=== PATIENT | male | born 1970 | race Two or more races ===

== ENCOUNTER 2024-10-07 14:35 | Inpatient (IN) | payer BC, SELFPAY ==
[2024-10-07] VITALS (17 sets, daily range): BP systolic 99–186; BP diastolic 57–111; PULSE 64–136; RESP 13–96; TEMP 36.8–37.1; O2SAT 92–99; BMI 26.5
--- NOTE | 2024-10-07 14:43 | EKG_ITS ---
[facility] Test Date: 2024-10-07 Pat Name: SONAL LEWIS Department: Room: - Gender: Male Media Relations Associate: : 1970 Requested By: ED Temporary Provider Order Number: [id number] Reading MD: ED Temporary Provider Measurements Intervals [place] Rate: 121 P: 66 DE: 155 QRS: 60 QRSD: 74 T: 51 QT: 270 QTc: 384 Interpretive Statements SINUS TACHYCARDIA NONSPECIFIC ST & T-WAVE ABNORMALITY ABNORMAL RHYTHM ECG No previous ECG available for comparison /store/S0/[id number]
--- NOTE | 2024-10-07 14:48 | XR_ITS ---
Examination: PA lateral chest 2 views Technique: Upright PA lateral chest 2 views Date and time: October 07, 2024 1501 hrs. Indications: Chest pain today. Findings: Minimal prominence left ventricle Lungs are clear. Mild osteopenia. Impression: No active disease
--- NOTE | 2024-10-07 14:49 | PD.EDRME ---
Rapid Medical Screening Exam E Arrival date/time: 10/07/24 14:35 54-year-old male with a history of hypertension presents to the emergency room with a chief complaint of 5 out of 10 sternal chest pain that radiates to his left arm and is causing him numbness and tingling x 1 day. I have greeted and performed a focused initial assessment of this patient. A comprehensive ED assessment and evaluation of the patient, analysis of all test results, and completion of the medical decision making process will be conducted by additional ED providers. Chief Complaint: General Adult/Misc Complain Vital signs reviewed by provider: Yes
[2024-10-07] MEDS: Aspirin 325 MG TABLET PO (15:48)
[2024-10-07] MEDS: ONDANSETRON INJ 2 MG/ML INJ 2 ML 4 MG IV (15:48)
[2024-10-07] MEDS: FAMOTIDINE INJ 10 MG/ML VIAL 2 ML 20 MG IVP (15:49)
[2024-10-07] MEDS: NITROGLYCERIN OINT 2% 1 INCH PACKET TOP (15:50)
[2024-10-07] MEDS: METOPROLOL TARTRATE INJ 1 MG/ML AMP 5 ML 5 MG IVP ×2 (16:01→17:39)
[2024-10-07 16:03] LABS: Lactate (Lactic Acid) 2.5 mMol/L (0.4-2.0)
[2024-10-07 16:04] LABS: Basophils % (Auto) 0 % (0-2.5); Eosinophils # (Auto) 0.1 Thou/mm3 (0.0-0.5); Eosinophils % (Auto) 1 % (0-10); Hematocrit 42.8 % (41.0-53.0); Hemoglobin 15.6 g/dL (13.5-16.0); Immature Granulocytes % (Auto) 1 % (0-0); Immature Granulocytes Auto 0.11 Thou/mm3 (0.00-0.00); Lymphocytes # (Auto) 1.7 Thou/mm3 (1.0-4.8); Lymphocytes % (Auto) 15 % (10-50); Mean Corpuscular HGB Conc 36.4 g/dl (31.0-37.0); Mean Corpuscular Hemoglobin 33.3 pg (25.0-35.0); Mean Corpuscular Volume 92 fL (80-100); Monocytes # (Auto) 0.7 Thou/mm3 (0.0-0.8); Monocytes % (Auto) 6 % (0-12); Neutrophils # (Auto) 8.4 Thou/mm3 (1.8-7.7); Neutrophils % (Auto) 77 % (37-80); Nucleated Red Blood Cell % 0 /100 WBC (0); Platelet Count 257 Thou/mm3 (140-440); RDW Standard Deviation 40.5 fL (35.1-43.9); Red Blood Count 4.68 Miln/mm3 (4.50-5.90); White Blood Count 10.9 Thou/mm3 (3.8-10.6)
[2024-10-07 16:05] LABS: Collection Type, Urine Clean Catch; Squamous Epithelial Cell,Urine 0 /hpf (0-5)
[2024-10-07 16:09] LABS: Bilirubin,Urine Negative (Negative); Blood,Urine Negative (Negative); Clarity,Urine Clear (Clear/Hazy); Color,Urine Lt-Yellow (Lt Yel-Yel); Glucose, Urine Negative (Negative); Ketones,Urine Negative (Negative); Leukocyte Esterase,Urine Negative (Negative); Nitrite,Urine Negative (Negative); Protein,Urine Negative (Neg - Trace); RBC,Urine 3 /hpf (0-3); Urobilinogen,Urine Negative mg/dL (0.0-1.0); WBC,Urine 1 /hpf (0-5)
--- NOTE | 2024-10-07 16:11 | PD.EDADULT ---
ED General RME/HPI General Chief complaint: General Adult/Misc Complain Stated complaint: HIGH BP 170/106; TOOK BP MEDS @ 2 HRS AGO; 160/110 Time Seen by Provider: 10/07/24 15:16 Arrival date/time: 10/07/24 14:35 RME / HPI RME / HPI narrative: This patient is a 54-year-old with past medical history of hypertension, gastritis presenting to the ED on 10/07/2024 with chief complaint of substernal chest pain radiating to the left arm started today. Patient reported that he had his breakfast with 2 cups of coffee after which his blood pressure went up and he felt racing of heart. He checked his blood pressure and was 190/100 after which he took lisinopril which helped the chest pain as well. He rated his chest pain as 5/10 rating to the left arm lasting for 40 minutes and is resolved during assessment. He describes his pain as pressure-like without shortness of breath. He endorsed abdominal discomfort mainly in the epigastric region associate with nausea and has some itchiness with redness on the chest. He follows his PCP as outpatient and was informed that he needs cardiac workup outpatient however patient did not get worked up before. Patient has similar episode of chest pain 2 years ago as well as 2 months ago. Denied any dysuria or lower extremity swelling. He endorsed some cough without phlegm related to allergies. Past medical history: As above PSH: Cholecystectomy SH: smokes 1 to 2 cigarettes once every week, drinks 1 beer twice a day every week. Last drink was a week ago. Denies recreational drug use Allergies: NKDA Home medications: Lisinopril 40 mg once daily Vitals showed blood pressure 183/97, tachycardia with pulse 124, respiratory rate 18 and afebrile. He was saturating well on room air. Labs were significant for leukocytosis white count 10.9, hemoglobin 15.6. Lactic acidosis lactic acid 2.5.EKG showed sinus tachycardia with QTc [address] depressions in lead to 3 aVF, anterior leads V2 to V3, V4, V5, V6. Heart score came 5 points predicting moderate risk of MACE 12-16% Differential diagnoses include NSTEMI type I, gastritis/GERD, Hypertensive urgency, lactic acidosis, hypokalemia Patient was given bolus of aspirin 325 mg x 1, Zofran 4 mg x 1, nitroglycerin patch x 1, Pepcid 20 mg IV x 1 and metoprolol 5 mg IV x 1. Waiting for CMP, Trop I and urinalysis. 17:30 patient reported improvement in his symptoms after medications. Vitals revealed slight improvement in tachycardia and blood pressure remained elevated. CMP was significant for hyponatremia sodium 134, hypokalemia potassium 2.9. Kidney functions showed BUN 16 and creatinine 1.0. Blood glucose 126. Hypocalcemia 8.3 and hypomagnesemia 1.7. Liver enzymes unremarkable. Initial troponin I came negative. We repeated troponin I at 6:00 . Urinalysis was clean. U tox was negative. Chest x-ray showed no active disease. 17:40 We ordered additional metoprolol 5 mg x 1, 40 mEq KCl p.o., 20 mEq KCl IV x 1, magnesium 2 g IV x 1 and calcium carbonate 600 mg x 1. Business Systems Developer, Dr. Jackson was consulted. He stated that if patient 2nd troponin I goes up we can start heparin drip for ACS protocol and he will assess the patient later. 17:55 Patient was complaining of anxiety therefore hydroxyzine was given 25 mg x 1. Pending second troponin I. Discussed case with hospitalist team regarding admission. Discussed patient's ED course, exam findings, labs and radiology results. Hospitalist team agreed to accept the patient for admission. MD complaint: Substernal chest pain radiating to the left arm Onset (ago): day(s) (1) Location: chest and upper extremity (Left arm) Radiation: extremity Severity: severe Severity scale (1-10): 5 Quality: crushing and constant Consistency: now resolved Relieving factors: medication (lisinopril 40 mg) Associated symptoms: chest pain, nausea/vomiting and other (Racing of heart) Treatments prior to arrival: other (Lisinopril 40 mg) Related Data Allergies Allergy/AdvReac Type Severity Reaction Status Date / Time No Known Allergies Allergy Verified 10/07/24 14:41 Review of Systems Review of Systems Systems Reviewed: All systems reviewed, normal except as documented Past Medical History Past Medical History CARDIAC: Positive Hypertension GASTROINTESTINAL: Positive Gastroesophageal Reflux Disease Surgical History SURGICAL: Positive Hx Cholecystectomy ED Exam Narrative Physical exam: GENERAL APPEARANCE: AxOx4, generally well-appearing male in no distress HEENT: NC, AT. dry mucus membrane. EOMI, clear conjunctiva, oropharynx clear. NECK: Supple without lymphadenopathy. No stiffness or restricted ROM. HEART: sinus tacy with regular rhythm, normal S1/S2, no m/r/g, Hypertensive LUNGS: CTAB, moving air well. No crackles or wheezes are heard. ABDOMEN: Soft, epigastric tenderness, nondistended with good bowel sounds heard. BACK: No CVAT, no obvious deformity. EXTREMITIES: Without cyanosis, clubbing or edema. NEUROLOGICAL: Grossly nonfocal. Alert and oriented, moving all 4 extremities. CN not formally tested but appear grossly intact. Observed to ambulate with normal gait. Skin: Warm and dry without any rash. Psych: appropriate mood and affect Course Course Course Narrative: This patient is a 54-year-old with past medical history of hypertension gastritis presenting to the ED on 10/07/2024 with chief complaint of substernal chest pain radiating to the left arm started today. Patient reported that he had his breakfast with 2 cups of coffee after which his blood pressure went up and he felt racing of heart. He checked his blood pressure and was 190/100 after which he took lisinopril that helped the chest pain as well. He rated his chest pain as 5/10 rating to the left arm lasting for 40 minutes and is resolved during assessment. He describes his pain as pressure-like without shortness of breath. He endorsed abdominal discomfort mainly in the epigastric region associated with nausea and has some itchiness with redness on the chest. He follows his PCP as outpatient and was informed that he needs cardiac workup outpatient however patient did not get worked up before. This has been ongoing and recurent, Patient has similar episode of chest pain 2 years ago as well as 2 months ago. Denied any dysuria or lower extremity swelling. He endorsed some cough without phlegm related to allergies. Vitals showed blood pressure 183/97, tachycardia with pulse 124, respiratory rate 18 and afebrile. He was saturating well on room air. Labs were significant for leukocytosis white count 10.9, hemoglobin 15.6. Lactic acidosis lactic acid 2.5.EKG showed sinus tachycardia with QTc [address] depressions in lead to 3 aVF, anterior leads V2 to V3, V4, V5, V6. No previous EKGs to compare. Heart score came 5 points predicting moderate risk of MACE 12-16% Differential diagnoses includeNSTEMI type I, GERD, uncontrolled hypertension, anxiety, pneumonia, lactic acidosis Patient was given bolus of aspirin 325 mg x 1, Zofran 4 mg x 1, nitroglycerin patch x 1, Pepcid 20 mg IV x 1 and metoprolol 5 mg IV x 1. Waiting for CMP, Trop I and urinalysis. 17:20 patient reported improvement in his symptoms after medications. Vitals revealed slight improvement in tachycardia and blood pressure remained elevated. CMP was significant for hyponatremia sodium 134, hypokalemia potassium 2.9. Kidney functions showed BUN 16 and creatinine 1.0. Blood glucose 126. Hypocalcemia 8.3 and hypomagnesemia 1.7. Liver enzymes unremarkable. Initial troponin I came negative. We repeated troponin I at 6:00 . Urinalysis was clean. U tox was negative. Chest x-ray showed no active disease. We ordered additional metoprolol 5 mg x 1, 40 mEq KCl p.o., 20 mEq KCl IV x 1, magnesium 2 g IV x 1 and calcium carbonate 600 mg x 1. Business Systems Developer, Dr. Jackson was consulted. He stated that if patient 2nd troponin I goes up we can start heparin drip for ACS protocol and he will assess the patient later. 17:55 Patient was complaining of anxiety therefore hydroxyzine was given 25 mg x 1. Pending second troponin I. Discussed case with hospitalist team regarding admission. Discussed patient's ED course, exam findings, labs and radiology results. Hospitalist team agreed to accept the patient for admission. Quality Measures none Orders Category Date Time Status EKG (ED ONLY) *Do not use* NOW Care 10/07/24 14:43 Completed EKG (ED ONLY) *Do not use* NOW Care 10/07/24 17:26 Active Insert IV NOW Care 10/07/24 15:40 Active Consult to Cardiology Stat Cons 10/07/24 17:18 Ordered EKG (ED Only) Stat Exams 10/07/24 14:43 Draft EKG (ED Only) Stat Exams 10/07/24 17:26 Ordered XR chest 2V Stat Exams 10/07/24 14:48 Completed B-Type Natriuretic Peptide Stat Lab 10/07/24 15:46 Completed CBC Stat Lab 10/07/24 15:46 Completed Comprehensive Metabolic Panel Stat Lab 10/07/24 15:46 Completed Drug Screen,Urine Stat Lab 10/07/24 15:54 Completed Lactate (Lactic Acid) Stat Lab 10/07/24 15:46 Results Magnesium Stat Lab 10/07/24 15:46 Completed Troponin I Routine Lab 10/07/24 17:30 Received Troponin I Stat Lab 10/07/24 15:46 Completed Urinalysis Stat Lab 10/07/24 15:54 Completed Aspirin Med 10/07/24 15:24 Discontinued 325 mg PO X1 ONE Calcium Carbonate Med 10/07/24 17:02 Discontinued 600 mg PO X1 ONE Famotidine Inj [Pepcid Inj] Med 10/07/24 15:24 Discontinued 20 mg IVP X1 ONE Labetalol IV [Trandate IV] Med 10/07/24 15:45 Discontinued 5 mg IVP X1 ONE Magnesium Sulfate 2 GM Ivpb [Magnesium Sulfate Ivpb] Med 10/07/24 17:02 Active 2 gm in 50 ml IV X1 Metoprolol Tartrate Inj [Lopressor Inj] Med 10/07/24 15:52 Discontinued 5 mg IVP X1 ONE Metoprolol Tartrate Inj [Lopressor Inj] Med 10/07/24 17:11 Discontinued 5 mg IVP X1 ONE Nitroglycerin Oint 2% [Nitro-paste Oint 2%] Med 10/07/24 15:24 Discontinued 1 inch TOP X1 ONE Ondansetron Inj [Zofran Inj] Med 10/07/24 15:24 Discontinued 4 mg IV X1 ONE POTASSIUM CHL 10 mEq IVPB [Kcl Ivpb] Med 10/07/24 17:05 Active 10 meq in 100 ml IV Q1H Potassium Chloride [K-Dur] Med 10/07/24 17:01 Discontinued 20 meq PO X1 ONE Potassium Chloride [K-Dur] Med 10/07/24 17:01 Discontinued 40 meq PO X1 ONE Sodium Chloride 0.9% 500 ml [Ns] 500 ml Med 10/07/24 17:51 Ordered IV 100 mls/hr hydrOXYzine HCL [Atarax] Med 10/07/24 17:54 Once 25 mg PO X1 ONE Vital Signs Vital signs: Vital Signs Temperature 98.2 F 10/07/24 14:50 Pulse Rate 124 H 10/07/24 14:50 Respiratory Rate 18 10/07/24 14:50 Blood Pressure 183/97 H 10/07/24 14:50 Pulse Oximetry (%) 98 10/07/24 14:50 Oxygen Delivery Method Room Air 10/07/24 14:50 Discharge Plan Plan Patient Disposition: Admit Acute Care w/in Hospital Problem List Clinical Impression: Chest pain, Hypertensive urgency Patient/Caregiver Discharge Instructions Print Language: Georgian Stand Alone Forms: Kym Award Info., Patient Portal Info Letter MDM Narrative MDM hospital course (for use when minimal MDM required): This patient is a 54-year-old with past medical history of hypertension gastritis presenting to the ED on 10/07/2024 with chief complaint of substernal chest pain radiating to the left arm started today. Patient reported that he had his breakfast with 2 cups of coffee after which his blood pressure went up and he felt racing of heart. He checked his blood pressure and was 190/100 after which he took lisinopril that helped the chest pain as well. He rated his chest pain as 5/10 rating to the left arm lasting for 40 minutes and is resolved during assessment. He describes his pain as pressure-like without shortness of breath. He endorsed abdominal discomfort mainly in the epigastric region associated with nausea and has some itchiness with redness on the chest. He follows his PCP as outpatient and was informed that he needs cardiac workup outpatient however patient did not get worked up before. Patient has similar episode of chest pain 2 years ago as well as 2 months ago. Denied any dysuria or lower extremity swelling. He endorsed some cough without phlegm related to allergies. Vitals showed blood pressure 183/97, tachycardia with pulse 124, respiratory rate 18 and afebrile. He was saturating well on room air. Labs were significant for leukocytosis white count 10.9, hemoglobin 15.6. Lactic acidosis lactic acid 2.5.EKG showed sinus tachycardia with QTc [address] depressions in lead to 3 aVF, anterior leads V2 to V3, V4, V5, V6. Heart score : 5 points predicting moderate risk of MACE 12-16% Differential diagnoses includeNSTEMI type I, GERD, uncontrolled hypertension, anxiety, pneumonia, lactic acidosis Patient was given bolus of aspirin 325 mg x 1, Zofran 4 mg x 1, nitroglycerin patch x 1, Pepcid 20 mg IV x 1 and metoprolol 5 mg IV x 1. Waiting for CMP, Trop I and urinalysis. 17:20 patient reported improvement in his symptoms after medications. Vitals revealed slight improvement in tachycardia and blood pressure remained elevated. CMP was significant for hyponatremia sodium 134, hypokalemia potassium 2.9. Kidney functions showed BUN 16 and creatinine 1.0. Blood glucose 126. Hypocalcemia 8.3 and hypomagnesemia 1.7. Liver enzymes unremarkable. Initial troponin I came negative. We repeated troponin I at 6:00 . Urinalysis was clean. U tox was negative. Chest x-ray showed no active disease. We ordered additional metoprolol 5 mg x 1, 40 mEq KCl p.o., 20 mEq KCl IV x 1, magnesium 2 g IV x 1 and calcium carbonate 600 mg x 1. Business Systems Developer, Dr. Jackson was consulted. He stated that if patient 2nd troponin I goes up we can start heparin drip for ACS protocol and he will assess the patient later. 17:55 Patient was complaining of anxiety therefore hydroxyzine was given 25 mg x 1. Pending second troponin I. Discussed case with hospitalist team regarding admission. Discussed patient's ED course, exam findings, labs and radiology results. Hospitalist team agreed to accept the patient for admission. EKG Interpretation EKG #1: EKG Interpretation: EKG showed sinus tachycardia with QTc [address] depressions in lead to 3 aVF, anterior leads V2 to V3, V4, V5, V6. No previous EKGs to compare. Imaging Imaging Interpretation(s): CXR showed no active disease. Medication Administration(s) Medication Administration History Magnesium Sulfate (Magnesium Sulfate Ivpb) 2 gm in 50 mls @ 25 mls/hr IV X1 ONE Stop: 10/07/24 19:01 Last Admin: 10/07/24 17:43 Dose: 25 mls/hr Documented By: RADHA Potassium Chloride (Kcl Ivpb) 10 meq in 100 mls @ 100 mls/hr IV Q1H C[place]IL[place] Stop: 10/07/24 19:04 Last Admin: 10/07/24 17:44 Dose: 100 mls/hr Documented By: RADHA Sodium Chloride (Ns) 500 mls @ 100 mls/hr IV .Q5H ONE Stop: 10/07/24 22:50 Discontinued Medications Aspirin (Aspirin 325 Mg Tablet) 325 mg PO X1 ONE Stop: 10/07/24 15:25 Last Admin: 10/07/24 15:48 Dose: 325 mg Documented By: RADHA Calcium Carbonate (Calcium Carbonate 600 Mg Tablet) 600 mg PO X1 ONE Stop: 10/07/24 17:03 Last Admin: 10/07/24 17:33 Dose: 600 mg Documented By: DB Famotidine (Famotidine Inj 10 Mg/Ml Vial 2 Ml) 20 mg IVP X1 ONE Stop: 10/07/24 15:25 Last Admin: 10/07/24 15:49 Dose: 20 mg Documented By: DB Labetalol HCl (Labetalol Inj 5 Mg/Ml Vial 20 Ml) 5 mg IVP X1 ONE Stop: 10/07/24 15:46 Last Admin: 10/07/24 16:03 Dose: Not Given Documented By: RADHA Non-Admin Reason: Cancelled by Provider Metoprolol Tartrate (Metoprolol Tartrate Inj 1 Mg/Ml Amp 5 Ml) 5 mg IVP X1 ONE Stop: 10/07/24 15:53 Last Admin: 10/07/24 16:01 Dose: 5 mg Documented By: RADHA Metoprolol Tartrate (Metoprolol Tartrate Inj 1 Mg/Ml Amp 5 Ml) 5 mg IVP X1 ONE Stop: 10/07/24 17:12 Last Admin: 10/07/24 17:39 Dose: 5 mg Documented By: RADHA Nitroglycerin (Nitroglycerin Oint 2% 1 Inch Packet) 1 inch TOP X1 ONE Stop: 10/07/24 15:25 Last Admin: 10/07/24 15:50 Dose: 1 inch Documented By: RADHA Ondansetron HCl (Ondansetron Inj 2 Mg/Ml Inj 2 Ml) 4 mg IV X1 ONE; Protocol Stop: 10/07/24 15:25 Last Admin: 10/07/24 15:48 Dose: 4 mg Documented By: RADHA Potassium Chloride (Potassium Chloride 20 Meq Tabcr) 40 meq PO X1 ONE Stop: 10/07/24 17:02 Last Admin: 10/07/24 17:32 Dose: 40 meq Documented By: RADHA Potassium Chloride (Potassium Chloride 20 Meq Tabcr) 20 meq PO X1 ONE Stop: 10/07/24 17:02 Last Admin: 10/07/24 17:52 Dose: Not Given Documented By: RADHA Non-Admin Reason: Cancelled by Provider Diagnosis Differential Diagnosis ED Complaint MDM: NSTEMI type I, GERD, Hypertensive urgency, Hypokalemia
[2024-10-07 16:15] LABS: Amphetamine/Methamp Scrn,U Negative (Negative); Barbiturate Screen,Urine Negative (Negative); Benzodiazepines Screen,Urine Negative (Negative); Benzoylecgonine Screen, Ur Negative (Negative); Fentanyl Screen,Urine Negative (Negative); Opiate Screen,Urine Negative (Negative); THC Screen,Urine Negative (Negative)
[2024-10-07 16:32] LABS: Alanine Aminotransferase 31 U/L (10-49); Albumin, Serum 4.6 gm/dL (3.5-5.0); Alkaline Phosphatase 77 U/L (46-116); Anion Gap 9 (7-16); Aspartate Amino Transferase 23 U/L (0-34); B-Type Natriuretic Peptide < 20 pg/mL (0-100); BUN/Creatinine Ratio 16 Ratio (12-20); Bilirubin,Total 0.7 mg/dL (0.3-1.2); Blood Urea Nitrogen 16 mg/dL (9-23); Calcium 8.3 mg/dL (8.3-10.6); Calcium (Corrected) 8.3 mg/dL (8.5-10.1); Carbon Dioxide 24.2 mMol/L (20.0-31.0); Chloride 101 mMol/L (98-107); Estimated Creatinine Clearance 74.4 mL/min (>60); Globulin 2.3 gm/dL (2.3-3.5); Glucose 126 mg/dL (74-106); Magnesium 1.7 mg/dL (1.6-2.6); Osmolality,Calculated 271 (275-295); Potassium 2.9 mMol/L (3.4-5.1); Sodium 134 mMol/L (136-145); Total Protein 6.9 gm/dL (5.7-8.2); Troponin I < 0.020 ng/mL (0.0-0.045); eGFR > 60 See Note
--- NOTE | 2024-10-07 17:26 | EKG_ITS ---
[facility] Test Date: 2024-10-07 Pat Name: SONAL LEWIS Department: Room: - Gender: Male Chemical Plant Manager: : 1970 Requested By: Rodolfo Muse Order Number: [id number] Reading MD: Rodolfo Muse Measurements Intervals [place] Rate: 90 P: 47 HI: 163 QRS: 34 QRSD: 72 T: 22 QT: 344 QTc: 422 Interpretive Statements SINUS RHYTHM Compared to ECG 10/07/2024 14:46:27 Sinus tachycardia no longer present T-wave abnormality no longer present /store/S0/[id number]
[2024-10-07] MEDS: POTASSIUM CHLORIDE 20 mEq TABCR 40 MEQ PO (17:32)
[2024-10-07] MEDS: CALCIUM CARBONATE 600 MG TABLET PO (17:33)
[2024-10-07] MEDS: Magnesium Sulfate 2 GM Ivpb 2 GM/50 ML BAG IV (17:43)
[2024-10-07] MEDS: POTASSIUM CHL 10 mEq IVPB 10 MEQ/100 ML BAG 100 MEQ IV ×2 (17:44→18:39)
[2024-10-07] MEDS: hydrOXYzine HCL 25 MG TABLET PO (17:56)
[2024-10-07] MEDS: SODIUM CHLORIDE 0.9% 500 ML 500 ML 100 ML IV (17:57)
--- NOTE | 2024-10-07 18:12 | EVENTNT_ITS ---
Documentation for date of: 10/07/24 Event Note Event Note: Lei Roberson is a 54-year-old with past medical history of hypertension and gastritis who presented on 10/07/2024 with substernal chest pain radiating to the left arm that started today. Described it as pressure-like, 5/10 in intensity, lasted 40 minutes, and resolved while being evaluated in ED and no associated shortness of breath. Of note, he ate breakfast with 2 cups of coffee after which his blood pressure went up and endorsed palpitations, checked his blood pressure and was 190/100 after which he took lisinopril and alleviated some of his chest discomfort. Also endorsed epigastric abdominal discomfort with asso ciated with nausea, pruritis and erythema on chest. Had similar episode of chest pain 2 years ago as well as 2 months ago. In ED, blood pressure 183/97, HR 124, respiratory rate 18, afebrile, saturating well on room air. WBC 10.9, Na 134, K 2.9, Mg 1.7. Troponin negative, lactic acid 2.5. EKG showed sinus tachycardia, QTc 384, ST depressions in lead 2 (possibly 3, 4, 5). Cardiology consulted and recommended repeat EKG and if worsening signs on EKG, to start heparin drip and will see tomorrow. Given bolus of aspirin 325 mg x 1, Zofran 4 mg x 1, nitroglycerin patch x 1, Pepcid 20 mg IV x 1 and metoprolol 5 mg IV x 1. Waiting for CMP, repeat troponin and urinalysis. Will sign out to night team for admission. ----- Plan discussed with attending physician Dr. Christopher Rodriguez MD PGY-1 Internal Medicine
[2024-10-07 19:00] LABS: Reflex Lactate? Y
[2024-10-07 19:15] LABS: Lactic Acid, 3 HR 2.6 mMol/L (0.4-2.0)
[2024-10-07 19:18] LABS: Troponin I 0.048 ng/mL (0.0-0.045)
--- NOTE | 2024-10-07 20:04 | ESHP_ITS ---
Documentation for date of: 10/07/24 HPI History of Present Illness Chief complaint: chest pressure History of present illness: Lei Roberson is 54 yr male with PMH of HTN who's presented to ED due to chest pain that started earlier today. Patient stated that he drank two small coffees when he started experiencing palpations, anxiety, and mild diaphoresis shortly after. Patient states that he rarely drinks coffee due to these symptoms. This had occurred to him previously about 1 year ago while in [place]. After drinking coffee, patient went to the hospital was treated symptomatically, and discharged with no invasive management. States that he follows PCP outpatient. He was started on lisinopril and aspirin for prophylaxis. He has never followed up with poker in. Has a active lifestyle endorses exercising daily and has never experienced chest pain during the physical activity. Patient checks his blood pressure at home regularly. States that it ranges from 120?130 over 80s. Does not take his lisinopril every day only when his blood pressure is high. After drinking coffee this morning, patient had checked his blood pressure which was 190 systolic after which he took his lisinopril dose. Chest pain was tight/pressure like in nature. He endorsed some numbness in his left arm, denied any radiation into his neck or jaw, no associated with any positional changes. He denied any headache, dizziness, shortness of breath, nausea, or vomiting. Endorsed abdominal discomfort. Patient did not take anything at home to relieve any symptoms. Stated that he felt much better after receiving nitroglycerin patch. In ED, blood pressure 183/97, tachycardia 124, respiratory rate 18, afebrile. CBC significant for mild leukocytosis 11, platelets 257. Sodium 134, kalemia potassium 2.9, creatinine 1.0, glucose 126. Lactic acid mildly elevated 2.5, magnesium 1.7. Initial troponins are negative with repeat troponins slowly uptrending from 0.048--> 0.020. Initial EKG was negative for any ST depression but nonspecific ST-T wave abnormalities with rate 121. Patient was given loading dose aspirin 325 mg, labetalol IV 5 mg, IV metoprolol tartrate 5 mg x 2, nitroglycerin patch, total of 60 mEq potassium, 2 g mag. Repeat EKG showed resolved abnormalities with rate 90. Blood pressure at bedside 144/89. Patient stated that symptoms had completely resolved with nitroglycerin patch. Urinalysis was clean. U tox was negative. Chest x-ray showed no active disease. Cardiology Dr. Jackson was consulted and patient admitted for NSTEMI I. 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 Denies smoking, denies drinking, denies drug use. Meds: Lisinopril 20 mg daily Allergies: NKDA Review of Systems Review of Systems Systems Reviewed: All systems reviewed, normal except as documented Exam Vital Signs Temp Pulse Resp BP Pulse Ox O2 Del Method 98.7 F 97 16 148/95 H 97 Room Air 10/07/24 18:11 10/07/24 18:11 10/07/24 18:11 10/07/24 18:11 10/07/24 18:11 10/07/24 18:11 Narrative Exam General: Middle-aged male, no acute distress, cooperative. HEENT: NCAT, No JVD noted. Mucosa moist. Pupils are equal and reactive to light bilaterally. Cardiovascular: Normal S1 and S2. Regular rate and rhythm. No reproducible pain. Respiratory: Lungs are clear to auscultation bilaterally. No wheezing or crackles heard. Abdomen: Soft, nontender, slightly distended lower abdomen, normal bowel sounds. Skin: Warm to touch, dry, no rashes noted. Musculoskeletal: No gross injuries. Able to move all 4 extremities. No pitting edema. Neuro: Alert and oriented x3. No focal neuro deficits. Psych: Normal affect and mood. Results: Labs 10/07/24 15:46 10/07/24 15:46 Labs: Short CBC 10/07/24 Range/Units 15:46 WBC 10.9 H (3.8-10.6) Thou/mm3 Hgb 15.6 (13.5-16.0) g/dL Hct 42.8 (41.0-53.0) % Plt Count 257 (140-440) Thou/mm3 BMP 10/07/24 15:46 Sodium 134 L Potassium 2.9 L Chloride 101 Carbon Dioxide 24.2 BUN 16 Creatinine 1.0 Glucose 126 H Calcium 8.3 Cardiac Enzymes 10/07/24 10/07/24 Range/Units 15:46 17:30 Troponin I < 0.020 0.048 H* (0.0-0.045) ng/mL Liver Function 10/07/24 Range/Units 15:46 Total Bilirubin 0.7 (0.3-1.2) mg/dL AST 23 (0-34) U/L ALT 31 (10-49) U/L Alkaline Phosphatase 77 (46-116) U/L Albumin 4.6 (3.5-5.0) gm/dL Urine 10/07/24 Range/Units 15:54 Urine Color Lt-Yellow (Lt Yel-Yel) Urine Clarity Clear (Clear/Hazy) Urine pH 7.0 (5.0-7.0) Ur Specific [place] 1.010 (1.001-1.035) Urine Protein Negative (Neg - Trace) Urine Glucose (UA) Negative (Negative) Quality Measures Quality Measures none Medications Home Medications and Allergies Allergies Allergy/AdvReac Type Severity Reaction Status Date / Time No Known Allergies Allergy Verified 10/07/24 14:41 Visit Medications Acetaminophen (Acetaminophen 325 Mg Tablet) 650 mg PO Q6H PRN PRN Reason: Fever >100.3 or pain Stop: 11/06/24 19:56 Heparin Sodium (Porcine) (Heparin Sod Inj 5000 Unit/Ml Vial) 5,000 unit SC Q8HR CECILLE Stop: 10/21/24 21:59 Sodium Chloride (Ns) 500 mls @ 100 mls/hr IV .Q5H ONE Stop: 10/07/24 22:50 Last Admin: 10/07/24 17:57 Dose: 100 mls/hr Ondansetron HCl (Ondansetron Inj 2 Mg/Ml Inj 2 Ml) 4 mg IV Q6H PRN; Protocol PRN Reason: NAUSEA OR VOMITING Stop: 11/06/24 19:56 Sennosides (Senna Tablet) 1 tab PO QDAY PRN; Protocol PRN Reason: constipation Stop: 11/06/24 19:56 Discontinued Medications Aspirin (Aspirin 325 Mg Tablet) 325 mg PO X1 ONE Stop: 10/07/24 15:25 Last Admin: 10/07/24 15:48 Dose: 325 mg Calcium Carbonate (Calcium Carbonate 600 Mg Tablet) 600 mg PO X1 ONE Stop: 10/07/24 17:03 Last Admin: 10/07/24 17:33 Dose: 600 mg Famotidine (Famotidine Inj 10 Mg/Ml Vial 2 Ml) 20 mg IVP X1 ONE Stop: 10/07/24 15:25 Last Admin: 10/07/24 15:49 Dose: 20 mg Hydroxyzine HCl (Hydroxyzine Hcl 25 Mg Tablet) 25 mg PO X1 ONE Stop: 10/07/24 17:55 Last Admin: 10/07/24 17:56 Dose: 25 mg Magnesium Sulfate (Magnesium Sulfate Ivpb) 2 gm in 50 mls @ 25 mls/hr IV X1 ONE Stop: 10/07/24 19:01 Last Infusion: 10/07/24 19:53 Dose: Infused Potassium Chloride (Kcl Ivpb) 10 meq in 100 mls @ 100 mls/hr IV Q1H CECILLE Stop: 10/07/24 19:04 Last Infusion: 10/07/24 19:53 Dose: Infused Labetalol HCl (Labetalol Inj 5 Mg/Ml Vial 20 Ml) 5 mg IVP X1 ONE Stop: 10/07/24 15:46 Last Admin: 10/07/24 16:03 Dose: Not Given Metoprolol Tartrate (Metoprolol Tartrate Inj 1 Mg/Ml Amp 5 Ml) 5 mg IVP X1 ONE Stop: 10/07/24 15:53 Last Admin: 10/07/24 16:01 Dose: 5 mg Metoprolol Tartrate (Metoprolol Tartrate Inj 1 Mg/Ml Amp 5 Ml) 5 mg IVP X1 ONE Stop: 10/07/24 17:12 Last Admin: 10/07/24 17:39 Dose: 5 mg Nitroglycerin (Nitroglycerin Oint 2% 1 Inch Packet) 1 inch TOP X1 ONE Stop: 10/07/24 15:25 Last Admin: 10/07/24 15:50 Dose: 1 inch Ondansetron HCl (Ondansetron Inj 2 Mg/Ml Inj 2 Ml) 4 mg IV X1 ONE; Protocol Stop: 10/07/24 15:25 Last Admin: 10/07/24 15:48 Dose: 4 mg Potassium Chloride (Potassium Chloride 20 Meq Tabcr) 40 meq PO X1 ONE Stop: 10/07/24 17:02 Last Admin: 10/07/24 17:32 Dose: 40 meq Potassium Chloride (Potassium Chloride 20 Meq Tabcr) 20 meq PO X1 ONE Stop: 10/07/24 17:02 Last Admin: 10/07/24 17:52 Dose: Not Given Assessment & Plan Plan Lei Roberson is 54 yr male with PMH of HTN who's presented to ED due to chest pain that started earlier today. Patient stated that he drank two small coffees when he started experiencing palpations, anxiety, and mild diaphoresis shortly after. Does not take his lisinopril every day only when his blood pressure is high. Cardiology Dr. Jackson was consulted and patient admitted for NSTEMI I. #NSTEMI I Unstable angina (initially) vs NSTEMI vs gastritis vs gerd vs anxiety. Started experiencing Pressure type chest pain after eating 2 small cups of coffee. Patient very rarely drinks coffee due to the symptoms reoccurring. He has never seen cardiology in the past. Denies any stent placement. Sees PCP outpatient has started him on lisinopril 20 mg daily. He endorsed some numbness in his left arm, denied any radiation into his neck or jaw, no associated with any positional changes. Stated that he felt much better after receiving nitroglycerin patch. In ED, blood pressure 183/97, tachycardia 124, respiratory rate 18, afebrile. CBC significant for mild leukocytosis 11, potassium 2.9, Lactic acid mildly elevated 2.5, magnesium 1.7. Initial troponins are negative with repeat troponins slowly uptrending from 0.048--> 0.020. Initial EKG was negative for any ST depression but nonspecific ST-T wave abnormalities with rate 121. atient was given loading dose aspirin 325 mg, labetalol IV 5 mg, IV metoprolol tartrate 5 mg x 2, nitroglycerin patch, total of 60 mEq potassium, 2 g mag. Repeat EKG showed resolved abnormalities with rate 90. Blood pressure at bedside 144/89. - Cardiology Dr. Jackson consulted: recs to start heparin drip if next troponins elevated - Trend troponins - Nitroglycerin SL or patch for chest pain - Echo pending - Continue aspirin 81 mg daily - Continue home lisinopril 20 mg daily - Lipid panel, TSH pending #Electrolyte abnormalities #Hypokalemia - Replete as needed - Daily CMP #Hx HTN Takes lisinopril 20mg PRN when BP is high or feels symptoms such has anxiety or diaphoresis. - Cardiology recs pending Health maintenance: Dispo: tele NSTEMI I FEN: cardiac diet DVT prophylaxis: Subcu heparin CODE STATUS: Full code The patient's management plan was discussed with my attending physician Dr. Korey Guevara, PGY-1 Attending Provider Attestation/Addendum Pt was evaluated and plan formulated together with the housestaff team. I have reviewed the residents note above and agree with most of its content. Please refer to the residents note for additional details.
[2024-10-07 20:55] LABS: Triglycerides 111 mg/dL (30-150)
[2024-10-07 20:57] LABS: Cardiac Risk Estimate 4.3 RATIO (4.0-6.7); Cholesterol 213 mg/dL (132-200); HDL Cholesterol 49 mg/dL (40-60); LDL Cholesterol,Calculated 142 mg/dL (0-130)
[2024-10-07 21:24] LABS: Troponin I 0.048 ng/mL (0.0-0.045)
[2024-10-07 23:34] LABS: Troponin I 0.042 ng/mL (0.0-0.045)
[2024-10-08] VITALS (22 sets, daily range): BP systolic 94–134; BP diastolic 52–85; PULSE 59–92; RESP 14–96; TEMP 36–37.1; O2SAT 93–98
[2024-10-08 02:35] LABS: Troponin I 0.033 ng/mL (0.0-0.045)
[2024-10-08] MEDS: HEPARIN SOD INJ 5000 UNIT/ML VIAL SC (05:30)
[2024-10-08 06:10] LABS: Basophils % (Auto) 0 % (0-2.5); Eosinophils # (Auto) 0.1 Thou/mm3 (0.0-0.5); Eosinophils % (Auto) 1 % (0-10); Hematocrit 42.5 % (41.0-53.0); Hemoglobin 14.9 g/dL (13.5-16.0); Immature Granulocytes % (Auto) 1 % (0-0); Immature Granulocytes Auto 0.05 Thou/mm3 (0.00-0.00); Lymphocytes # (Auto) 2.1 Thou/mm3 (1.0-4.8); Lymphocytes % (Auto) 21 % (10-50); Mean Corpuscular HGB Conc 35.1 g/dl (31.0-37.0); Mean Corpuscular Hemoglobin 32.6 pg (25.0-35.0); Mean Corpuscular Volume 93 fL (80-100); Monocytes # (Auto) 0.8 Thou/mm3 (0.0-0.8); Monocytes % (Auto) 8 % (0-12); Neutrophils # (Auto) 7.3 Thou/mm3 (1.8-7.7); Neutrophils % (Auto) 70 % (37-80); Nucleated Red Blood Cell % 0 /100 WBC (0); Platelet Count 240 Thou/mm3 (140-440); RDW Standard Deviation 42.4 fL (35.1-43.9); Red Blood Count 4.57 Miln/mm3 (4.50-5.90); White Blood Count 10.4 Thou/mm3 (3.8-10.6)
[2024-10-08 06:42] LABS: Alanine Aminotransferase 30 U/L (10-49); Albumin/Globulin Ratio 1.7 (1.2-2.2); Alkaline Phosphatase 70 U/L (46-116); Anion Gap 7 (7-16); Aspartate Amino Transferase 22 U/L (0-34); BUN/Creatinine Ratio 13 Ratio (12-20); Bilirubin,Total 0.9 mg/dL (0.3-1.2); Blood Urea Nitrogen 12 mg/dL (9-23); Calcium 8.2 mg/dL (8.3-10.6); Calcium (Corrected) 8.2 mg/dL (8.5-10.1); Carbon Dioxide 25.9 mMol/L (20.0-31.0); Chloride 108 mMol/L (98-107); Creatinine (Component) 0.9 mg/dL (0.6-1.3); Estimated Creatinine Clearance 82.7 mL/min (>60); Globulin 2.3 gm/dL (2.3-3.5); Glucose 108 mg/dL (74-106); Magnesium 2.3 mg/dL (1.6-2.6); Osmolality,Calculated 281 (275-295); Phosphorous 2.6 mg/dL (2.4-5.1); Sodium 141 mMol/L (136-145); Total Protein 6.3 gm/dL (5.7-8.2); eGFR > 60 See Note
--- NOTE | 2024-10-08 08:07 | PD.IMCONS ---
HPI Data of Consult Requesting Physician: Kiko White DO Primary Care Provider: Physician No Primary/Family Consult Narrative History of present illness: This is 54 yr male with PMH of HTN pt seen in the ER wotjh chest pain EKG non specific changes troponin .04 minimal x3 cc:: cc: Kiko White, DO Meds Home Medications and Allergies Home Medications ?Medication ?Instructions ?Recorded ?Confirmed ?Type aspirin 81 mg chewable tablet 81 mg PO DAILY 10/08/24 10/08/24 History famotidine 40 mg tablet 40 mg PO DAILY PRN acid reflux 10/08/24 10/08/24 History lisinopril 20 mg tablet 20 mg PO DAILY 10/08/24 10/08/24 History omeprazole 40 mg capsule,delayed 40 mg PO DAILY PRN acid reflux 10/08/24 10/08/24 History release Allergies Allergy/AdvReac Type Severity Reaction Status Date / Time No Known Allergies Allergy Verified 10/07/24 14:41 Exam Vital Signs Temp Pulse Resp BP Pulse Ox O2 Del Method O2 Flow Rate 98.7 F 59 L 14 105/52 L 96 Nasal Cannula 3 10/08/24 02:00 10/08/24 07:37 10/08/24 07:37 10/08/24 03:28 10/08/24 03:28 10/07/24 19:57 10/07/24 19:57 Routine HEENT Exam Head: Present normocephalic and atraumatic Eye: Present EOMI and PERRL ENT: Present mucous membranes moist Routine Neck Exam Neck: Present supple and trachea midline Routine Respiratory Exam Respiratory: Present chest non-tender, lungs clear, normal breath sounds and no resp distress Routine Cardiovascular Exam Cardiovascular: Present RRR Routine Abdominal Exam Abdominal: Present soft and normoactive bowel sounds Routine Extremities Exam Extremities: Present full ROM Routine Skin Exam Skin: Present intact, dry and warm Routine Neurological Exam Neurological: Present alert, oriented X3 and CN II-XII intact Routine Psychiatric Exam Psychiatric: Present normal affect and normal thought process Results Labs 10/08/24 05:30 10/08/24 05:30 Labs: Short CBC 10/07/24 10/08/24 Range/Units 15:46 05:30 WBC 10.9 H 10.4 (3.8-10.6) Thou/mm3 Hgb 15.6 14.9 (13.5-16.0) g/dL Hct 42.8 42.5 (41.0-53.0) % Plt Count 257 240 (140-440) Thou/mm3 BMP 10/07/24 10/08/24 15:46 05:30 Sodium 134 L 141 Potassium 2.9 L 4.0 D Chloride 101 108 H Carbon Dioxide 24.2 25.9 BUN 16 12 Creatinine 1.0 0.9 Glucose 126 H 108 H Calcium 8.3 8.2 L Cardiac Enzymes 10/07/24 10/07/24 10/07/24 Range/Units 15:46 17:30 20:21 Troponin I < 0.020 0.048 H* 0.048 H* (0.0-0.045) ng/mL 10/07/24 10/08/24 Range/Units 23:10 02:13 Troponin I 0.042 0.033 (0.0-0.045) ng/mL Liver Function 10/07/24 10/08/24 Range/Units 15:46 05:30 Total Bilirubin 0.7 0.9 (0.3-1.2) mg/dL AST 23 22 (0-34) U/L ALT 31 30 (10-49) U/L Alkaline Phosphatase 77 70 (46-116) U/L Albumin 4.6 4.0 D (3.5-5.0) gm/dL Urine 10/07/24 Range/Units 15:54 Urine Color Lt-Yellow (Lt Yel-Yel) Urine Clarity Clear (Clear/Hazy) Urine pH 7.0 (5.0-7.0) Ur Specific [place] 1.010 (1.001-1.035) Urine Protein Negative (Neg - Trace) Urine Glucose (UA) Negative (Negative) Assessment and Plan Assessment and plan (1) Hypokalemia: Status: Acute (2) Hypertensive urgency: Status: Acute (3) Chest pain: Status: Acute Additional Assessment & Plan Additional Plan: echo continue current treatment for HTN need further w/u for CAD
[2024-10-08] MEDS: ASPIRIN EC 81 MG TABEC PO (08:17)
--- NOTE | 2024-10-08 09:42 | PC.NURSE ---
notified milly travis of order that is placed for nitro is a engineering laboratory technician order use only. she expressed verbal understanding.
--- NOTE | 2024-10-08 11:12 | PD.RESPRO ---
Documentation for date of: 10/08/24 Subjective Subjective Interval history: 10/08/2024: Overnight admission for 54-year-old male with past medical history of hypertension presenting to the ED with typical chest pain with some EKG changes and elevated troponin (which have since peaked and downtrending); admitted for NSTEMI type I versus stable angina. Patient seen and examined this morning, denies having any concerning cardiac symptoms at this time (chest pain, shortness of breath, palpitations or new dizziness). Dr. Jackson, cardiology, is following the case and has recommended a left heart catheterization which will be completed today at 2 PM. Started the patient on aspirin, statin and echo is pending; beta-teodoro has not been started as the patient's blood pressure and heart rate are on the softer side. Will continue to monitor the patient and expect discharge within the next 24 to 48 hours. Exam Vital Signs Temp Pulse Resp BP Pulse Ox O2 Del Method O2 Flow Rate 97.6 F 66 18 98/63 95 Room Air 3 10/08/24 08:00 10/08/24 08:00 10/08/24 08:00 10/08/24 08:00 10/08/24 08:00 10/08/24 08:00 10/07/24 19:57 Narrative Exam Physical Exam: GENERAL: Awake, answering questions appropriately in [place], appears stated age HEENT: NC/AT. Moist mucosa. PERRLA/EOMI. CARDIO: Heart RRR, no obvious murmurs, no JVD. PULM: No coughing or visible SOB. Lungs CTA B/L. GI: Abdomen soft, NT/ND, +BS. SKIN/MSK/EXT: No wounds/discoloration/rashes/edema/amputations noted. +Pedal pulses present B/L. NEURO: Oriented x3, Moves extremities x4, no focal neurologic deficits noted Objective Labs 10/09/24 05:27 10/09/24 05:27 Labs: Laboratory Results - last 24 hr 10/07/24 10/07/24 10/07/24 15:46 15:54 17:30 WBC 10.9 H RBC 4.68 Hgb 15.6 Hct 42.8 MCV 92 MCH 33.3 MCHC 36.4 RDW Std Deviation 40.5 Plt Count 257 Neut % (Auto) 77 Lymph % (Auto) 15 Becker % (Auto) 6 Eos % (Auto) 1 Baso % (Auto) 0 Neut # (Auto) 8.4 H Lymph # (Auto) 1.7 Becker # (Auto) 0.7 Eos # (Auto) 0.1 Baso # (Auto) 0.0 Immature Gran # (Auto) 0.11 H Absolute Nucleated RBC 0.00 Immature Gran % 1 H Nucleated RBC % 0 Sodium 134 L Potassium 2.9 L Chloride 101 Carbon Dioxide 24.2 Anion Gap 9 BUN 16 Creatinine 1.0 Estim Creat Clear Calc 74.4 eGFR > 60 BUN/Creatinine Ratio 16 Glucose 126 H Calculated Osmolality 271 L Lactic Acid 2.5 H Calcium 8.3 Corrected Calcium 8.3 L Phosphorus Magnesium 1.7 Total Bilirubin 0.7 AST 23 ALT 31 Alkaline Phosphatase 77 Troponin I < 0.020 0.048 H* B-Natriuretic Peptide < 20 Total Protein 6.9 Albumin 4.6 Globulin 2.3 Albumin/Globulin Ratio 2.0 Triglycerides Cholesterol LDL Cholesterol, Calc HDL Cholesterol Cholesterol/HDL Ratio Ur Collection Type Clean Catch Urine Color Lt-Yellow Urine Clarity Clear Urine pH 7.0 Ur Specific [place] 1.010 Urine Protein Negative Urine Glucose (UA) Negative Urine Ketones Negative Urine Blood Negative Urine Nitrite Negative Urine Bilirubin Negative Urine Urobilinogen (Auto) Negative Ur Leukocyte Esterase Negative Urine RBC 3 Urine WBC 1 Ur Squamous Epith Cells 0 Urine Bacteria None Urine Opiates Screen Negative Urine Fentanyl Screen Negative Ur Barbiturates Screen Negative U Amphetamin/Meth Scrn Negative U Benzodiazepines Scrn Negative U Cocaine Metab Screen Negative U Marijuana (THC) Screen Negative 10/07/24 10/07/24 10/07/24 19:09 20:21 23:10 WBC RBC Hgb Hct MCV MCH MCHC RDW Std Deviation Plt Count Neut % (Auto) Lymph % (Auto) Becker % (Auto) Eos % (Auto) Baso % (Auto) Neut # (Auto) Lymph # (Auto) Becker # (Auto) Eos # (Auto) Baso # (Auto) Immature Gran # (Auto) Absolute Nucleated RBC Immature Gran % Nucleated RBC % Sodium Potassium Chloride Carbon Dioxide Anion Gap BUN Creatinine Estim Creat Clear Calc eGFR BUN/Creatinine Ratio Glucose Calculated Osmolality Lactic Acid 2.6 H Calcium Corrected Calcium Phosphorus Magnesium Total Bilirubin AST ALT Alkaline Phosphatase Troponin I 0.048 H* 0.042 B-Natriuretic Peptide Total Protein Albumin Globulin Albumin/Globulin Ratio Triglycerides 111 Cholesterol 213 H LDL Cholesterol, Calc 142 H HDL Cholesterol 49 Cholesterol/HDL Ratio 4.3 Ur Collection Type Urine Color Urine Clarity Urine pH Ur Specific [place] Urine Protein Urine Glucose (UA) Urine Ketones Urine Blood Urine Nitrite Urine Bilirubin Urine Urobilinogen (Auto) Ur Leukocyte Esterase Urine RBC Urine WBC Ur Squamous Epith Cells Urine Bacteria Urine Opiates Screen Urine Fentanyl Screen Ur Barbiturates Screen U Amphetamin/Meth Scrn U Benzodiazepines Scrn U Cocaine Metab Screen U Marijuana (THC) Screen 10/08/24 10/08/24 02:13 05:30 WBC 10.4 RBC 4.57 Hgb 14.9 Hct 42.5 MCV 93 MCH 32.6 MCHC 35.1 RDW Std Deviation 42.4 Plt Count 240 Neut % (Auto) 70 Lymph % (Auto) 21 Becker % (Auto) 8 Eos % (Auto) 1 Baso % (Auto) 0 Neut # (Auto) 7.3 Lymph # (Auto) 2.1 Becker # (Auto) 0.8 Eos # (Auto) 0.1 Baso # (Auto) 0.0 Immature Gran # (Auto) 0.05 H Absolute Nucleated RBC 0.00 Immature Gran % 1 H Nucleated RBC % 0 Sodium 141 Potassium 4.0 D Chloride 108 H Carbon Dioxide 25.9 Anion Gap 7 BUN 12 Creatinine 0.9 Estim Creat Clear Calc 82.7 eGFR > 60 BUN/Creatinine Ratio 13 Glucose 108 H Calculated Osmolality 281 Lactic Acid Calcium 8.2 L Corrected Calcium 8.2 L Phosphorus 2.6 Magnesium 2.3 Total Bilirubin 0.9 AST 22 ALT 30 Alkaline Phosphatase 70 Troponin I 0.033 B-Natriuretic Peptide Total Protein 6.3 Albumin 4.0 D Globulin 2.3 Albumin/Globulin Ratio 1.7 Triglycerides Cholesterol LDL Cholesterol, Calc HDL Cholesterol Cholesterol/HDL Ratio Ur Collection Type Urine Color Urine Clarity Urine pH Ur Specific [place] Urine Protein Urine Glucose (UA) Urine Ketones Urine Blood Urine Nitrite Urine Bilirubin Urine Urobilinogen (Auto) Ur Leukocyte Esterase Urine RBC Urine WBC Ur Squamous Epith Cells Urine Bacteria Urine Opiates Screen Urine Fentanyl Screen Ur Barbiturates Screen U Amphetamin/Meth Scrn U Benzodiazepines Scrn U Cocaine Metab Screen U Marijuana (THC) Screen Quality Measures Quality Measures none Assessment & Plan Assessment Current Active Medications: Generic Name Dose Route Start Last Admin Trade Name Freq PRN Reason Stop Dose Admin Acetaminophen 650 mg 10/07/24 19:57 Acetaminophen 325 Mg Tablet PO 06/10/25 19:56 Q6H PRN Fever >100.3 or pain Aspirin 81 mg 10/08/24 09:00 10/08/24 08:17 Aspirin Ec 81 Mg Tabec PO 11/07/24 08:59 81 mg QDAY CECILLE Administration Atorvastatin Calcium 40 mg 10/08/24 21:00 Atorvastatin Calcium 20 Mg Tablet PO 11/07/24 20:59 HS CECILLE Heparin Sodium (Porcine) 5,000 unit 10/07/24 22:00 10/08/24 05:30 Heparin Sod Inj 5000 Unit/Ml Vial SC 10/21/24 21:59 5,000 unit Q8HR CECILLE Administration Ondansetron HCl 4 mg 10/07/24 19:57 Ondansetron Inj 2 Mg/Ml Inj 2 Ml IV 11/06/24 19:56 Q6H PRN NAUSEA OR VOMITING Protocol Sennosides 1 tab 10/07/24 19:57 Senna Tablet PO 11/06/24 19:56 QDAY PRN constipation Protocol Plan 54 yr male with PMH of HTN who's presented to ED due to chest pain that started earlier today. Patient stated that he drank two small coffees when he started experiencing palpations, anxiety, and mild diaphoresis shortly after. Does not take his lisinopril every day only when his blood pressure is high. Cardiology Dr. Jackson was consulted and patient admitted for NSTEMI I. #NSTEMI I versus stable angina Patient started experiencing Pressure type chest pain after eating 2 small cups of coffee. He has never seen cardiology in the past. Denies any stent placement. Sees PCP outpatient has started him on lisinopril 20 mg daily. He endorsed some numbness in his left arm, denied any radiation into his neck or jaw, no associated with any positional changes. Stated that he felt much better after receiving nitroglycerin patch. In ED, blood pressure 183/97, tachycardia 124, respiratory rate 18, afebrile. CBC significant for mild leukocytosis 11, potassium 2.9, Lactic acid mildly elevated 2.5, magnesium 1.7. Initial troponins are negative with repeat troponins slowly uptrending from 0.048--> 0.020. Initial EKG was negative for any ST depression but nonspecific ST-T wave abnormalities with rate 121. Patient was given loading dose aspirin 325 mg, labetalol IV 5 mg, IV metoprolol tartrate 5 mg x 2, nitroglycerin patch, total of 60 mEq potassium, 2 g mag. Repeat EKG showed resolved abnormalities with rate [address] Jackson consulted ASCVD risk of 10.2% in the next 10 years Plan: LHC with Dr. Jackson on 10/08 shows no significant coronary artery disease, will continue medical management PRN Nitroglycerin SL or patch for chest pain Echo pending Continue aspirin 81 mg daily Started atorvastatin 40 mg at bedtime Did not start beta-teodoro as patient's blood pressure on softer side #Hypertension Takes lisinopril 20mg PRN when BP is high or feels symptoms such has anxiety or diaphoresis. Plan: Will hold home medication as the patient's blood pressures are on the softer side Hospital Management: Dispo: tele NSTEMI I FEN: cardiac diet Bowel: Senna GI prophylaxis: Not needed DVT prophylaxis: Subcu heparin CODE STATUS: Full code Patient seen and examined with attending Dr. Wendy Lyons, PGY-1 Attending Provider Attestation/Addendum Sissy Perea, , attest that I was physically present for the paredes portions of the service and evaluated the patient with the resident and I reviewed and discussed the case with the resident and agree with the resident's findings and plans of care as documented above Patient seen and evaluated this AM. He states that he has no further episodes of chest pain. He states that he had pain while he was drinking coffee with shortness of breath and diaphoretic. Patient states he had a similar pain in the past, but was brief and self resolved. Patient states he has family history of hypertension and mother at age 47 from CVA 2/2 HTN. He states his BP was very high at time of presentation to ED. Patient has been taking his home meds as instructed. Patient has been evaluated by cardiology this AM and plan for cardiac cath this afternoon. Will f/u with results. Continue with aspirin and statin at this time.
[2024-10-08 11:31] LABS: INR 1.1 (0.9-1.3); Partial Thromboplastin Time 28.3 Seconds (22.0-36.0); Prothrombin Time 11.6 Seconds (9.0-12.2)
--- NOTE | 2024-10-08 13:20 | PD.CARDCATH ---
Cardiac Cath Procedure Procedure Narrative Procedure date 10/08/2024 Title of the procedure 1.left heart catheterization 2.left coronary angiogram 3.right coronary angiogram 4.left ventriculogram 5.conscious sedation and radiographic interpretation supervision 6.ultrasound guidance for right radial access Indication for the procedure This is a 54-year-old gentleman with past medical history of hypertension Complaining of recurrent atypical chest pain and was admitted to the hospital He also was noted to have electrolyte abnormalities His EKG does shows nonspecific symptoms and signs Troponin was minimal Cardiac catheter and coronary angiogram recommended Procedure This is done in the cardiac lab under current electrocardiographic monitoring intermittent blood pressure monitoring Right radial access obtained using modified Seldinger technique and 6 Tamazight sheath was placed TIG 4 catheter used for selective in the left coronary artery TIG 4 catheter used for selective right coronary artery TIG 4 catheter was also used for Left ventriculogram Findings Hemodynamics Overall left medical systolic function appears normal Approximate ejection fraction 55% There is no gradient across the aortic valve End-diastolic pressure was 13 mmHg Coronary anatomy 1.left main coronary artery appears normal 2.left anterior descending artery has distal luminal irregularities 3.diagonal has about 30% lesion in the midsegment where it bifurcates into superior inferior branches 4.circumflex appears to have a 20% lesion proximally at the ostium 5.obtuse marginal does not seem to have any significant lesion 6.right coronary is a dominant vessel no significant lesion noted 7.PDA appears to have minor luminal irregularities Conclusion No significant coronary lesion Continue medical management
--- NOTE | 2024-10-08 14:12 | PC.NURSE ---
1323 patient is awake, alert, breathing unlabored, s/p LHC by , TR band present to right wrist , no bleeding or hematom noted. Report received from Tracey AVALOS, patient to recover for 2hrs, then transfer patient back to tele room after TR band removal.
--- NOTE | 2024-10-08 14:54 | PC.NURSE ---
1421 2ml air removed from TR band since hemostasis time was 1321, no bleeding or hematoma noted 1436 2ml air removed from TR band, no bleeding or hematoma noted. Pt done with food tray, no nausea or vomititing 1450 patient is awake, alert, breathing unlabored, TR band to right wrist, no bleeding or hematoma noted, report given to Nhan AVALOS
[2024-10-08 15:09] LABS: Thyroid Stimulating Hormone 1.75 uIU/mL (0.55-4.78)
--- NOTE | 2024-10-08 15:55 | PC.NURSE ---
Report given to BAILEY Mejía RN and patient aware that TR band was removed and it is important for patient not to bend or twist his wrist for the next 3-5 days Blue coband can be removed on 10/09/24 @15:20 and clear tegaderm on 10/10/24 @15:20 patient was taken back to his room via gurney, no complications, patient is alert and orientated on room air
--- NOTE | 2024-10-08 19:59 | ECHO_ITS ---
Transthoracic Echo Report Ht (in): 66 Wt (lb): 165 Exam Location: Echo Lab Status: Inpatient Procurement Internship: [employer] [facility] Indications: Procedure Performed: BP: 134 / 85 HR: 85 Technical Quality: Technically difficult study MEASUREMENTS (Male / Female) Normal Values 2D ECHO LV Diastolic Diameter PLAX 3.9 cm 4.2 - 5.9 / 3.9 - 5.3 cm LV Systolic Diameter PLAX 2.7 cm IVS Diastolic Thickness 1.0 cm 0.6 - 1.0 / 0.6 - 0.9 cm LVPW Diastolic Thickness 0.7 cm 0.6 - 1.0 / 0.6 - 0.9 cm LV Relative Wall Thickness 0.4 LVOT Diameter 1.7 cm Aortic Root Diameter 2.4 cm LA Systolic Diameter LX 3.1 cm 3.0 - 4.0 / 2.7 - 3.8 cm LA Volume Index 17.2 cm?/m? 16 - 28 cm?/m? DOPPLER AV Peak Velocity 144.0 cm/s AV Peak Gradient 8.3 mmHg AV Mean Gradient 5.0 mmHg AV Velocity Time Integral 31.7 cm LVOT Peak Velocity 114.0 cm/s LVOT Peak Gradient 5.2 mmHg LVOT Velocity Time Integral 23.6 cm LVOT Cardiac Index 2419.3 cm?/min?m? AV Area Cont Eq vti 1.7 cm? AV Area Cont Eq pk 1.8 cm? MV Area PHT 3.6 cm? MR Peak Velocity 368.0 cm/s MR Peak Gradient 54.2 mmHg Mitral E Point Velocity 57.7 cm/s Mitral A Point Velocity 60.1 cm/s Mitral E to A Ratio 1.0 LV E' Lateral Velocity 9.9 cm/s Mitral E to LV E' Lateral Ratio 5.8 LV E' Septal Velocity 7.7 cm/s Mitral E to LV E' Septal Ratio 7.5 TR Peak Velocity 306.3 cm/s TR Peak Gradient 37.5 mmHg PV Peak Velocity 119.0 cm/s PV Peak Gradient 5.7 mmHg FINDINGS Left Ventricle Normal left ventricular size, wall thickness, systolic function with no obvious regional wall motion abnormalities. Normal left ventricular diastolic filling pattern for age. The ejection fraction is visually estimated at 55-60 %. Right Ventricle The right ventricle is normal in size and systolic function. Left Atrium The left atrium is normal by two-dimensional, color flow and Doppler imaging with no structural abnormalities, no thrombus formation present. Right Atrium The right atrium is normal by two-dimensional imaging, color flow and Doppler imaging with no structural abnormalities, no thrombus formation present. Atrial Septum The interatrial septum appears normal with no evidence of a shunt. Aorta The aorta is normal by two-dimensional, color flow and Doppler interrogation. Mitral Valve The mitral valve is normal by two-dimensional, color flow and Doppler interrogation. Mild mitral regurgitation. Aortic Valve The aortic valve is trileaflet and normal by two-dimensional, color flow and Doppler interrogation. There is no significant aortic valve regurgitation. Tricuspid Valve The tricuspid valve is normal by two-dimensional, color flow and Doppler interrogation. There is mild tricuspid valve regurgitation. Pulmonic Valve The pulmonic valve is not well visualized. There is no significant pulmonic valve regurgitation. Vessels Inferior vena cava not well visualized. Pericardium The pericardium is normal by two-dimensional imaging. There is no significant pericardial effusion. CONCLUSIONS Indication: chest pain Normal LV sthe transthoracic study is normal by two-dimensional, color flow imaging and Doppler interrogation. Normal left ventricular size and function. Estimated EF 55-60%. RV is normal in size and systolic function. Mild MR and TR. Li Davis (Electronically Signed) Final Date: 08 Oct 2024 23:15
[2024-10-08] MEDS: ATORVASTATIN CALCIUM 20 MG TABLET 40 MG PO (20:05)
[2024-10-09] VITALS: BP 110/68; PULSE 60; PULSE 65; RESP 12; TEMP 36.3; O2SAT 98
[2024-10-09 04:00] VITALS: BP 112/67; PULSE 63; PULSE 68; RESP 17; TEMP 36.5; O2SAT 97
[2024-10-09 05:54] VITALS: BMI 25.7
[2024-10-09 06:08] LABS: Basophils % (Auto) 0 % (0-2.5); Eosinophils # (Auto) 0.2 Thou/mm3 (0.0-0.5); Eosinophils % (Auto) 2 % (0-10); Hematocrit 41.9 % (41.0-53.0); Hemoglobin 15.1 g/dL (13.5-16.0); Immature Granulocytes % (Auto) 1 % (0-0); Immature Granulocytes Auto 0.05 Thou/mm3 (0.00-0.00); Lymphocytes # (Auto) 2.3 Thou/mm3 (1.0-4.8); Lymphocytes % (Auto) 26 % (10-50); Mean Corpuscular Hemoglobin 33.2 pg (25.0-35.0); Mean Corpuscular Volume 92 fL (80-100); Monocytes # (Auto) 0.7 Thou/mm3 (0.0-0.8); Monocytes % (Auto) 8 % (0-12); Neutrophils # (Auto) 5.6 Thou/mm3 (1.8-7.7); Neutrophils % (Auto) 63 % (37-80); Nucleated Red Blood Cell % 0 /100 WBC (0); Platelet Count 229 Thou/mm3 (140-440); RDW Standard Deviation 42.4 fL (35.1-43.9); Red Blood Count 4.55 Miln/mm3 (4.50-5.90); White Blood Count 8.9 Thou/mm3 (3.8-10.6)
[2024-10-09 06:33] LABS: Alanine Aminotransferase 32 U/L (10-49); Albumin/Globulin Ratio 1.8 (1.2-2.2); Alkaline Phosphatase 70 U/L (46-116); Anion Gap 9 (7-16); Aspartate Amino Transferase 19 U/L (0-34); BUN/Creatinine Ratio 16 Ratio (12-20); Bilirubin,Total 0.8 mg/dL (0.3-1.2); Blood Urea Nitrogen 14 mg/dL (9-23); Calcium 8.4 mg/dL (8.3-10.6); Calcium (Corrected) 8.4 mg/dL (8.5-10.1); Carbon Dioxide 25.2 mMol/L (20.0-31.0); Chloride 105 mMol/L (98-107); Creatinine (Component) 0.9 mg/dL (0.6-1.3); Estimated Creatinine Clearance 82.7 mL/min (>60); Globulin 2.2 gm/dL (2.3-3.5); Glucose 101 mg/dL (74-106); Osmolality,Calculated 278 (275-295); Potassium 4.2 mMol/L (3.4-5.1); Sodium 139 mMol/L (136-145); Total Protein 6.2 gm/dL (5.7-8.2); eGFR > 60 See Note
--- NOTE | 2024-10-09 07:56 | PC.SS ---
SS met with pateint who is alert/oriented. Patient was able to verify demographics. Patient was admitted for nstemi vs unstable angina. Patient states he resides with partner. Patient is independent with ADL's. Patient is employed. Patient states he prefers Malay. [employer] line used. Patient states he follows at [facility] with Dr. Carlos. Last appt. was last month. Pharmacy: [facility]. Patient follows with Dr. Jackson. He is pending an echo and angio. Patient's alt medical decision maker is friend, Bill. Bill will transport upon discharge.
[2024-10-09 08:00] VITALS: BP 113/75; PULSE 64; PULSE 79; RESP 20; TEMP 36.4; O2SAT 96
[2024-10-09] MEDS: CALCIUM CARBONATE 600 MG TABLET PO (08:52)
[2024-10-09] MEDS: ASPIRIN EC 81 MG TABEC PO (08:52)
[2024-10-09 11:14] VITALS: PULSE 78; RESP 18; RESP 96
[2024-10-09 11:40] VITALS: BP 118/83; PULSE 66; RESP 19; TEMP 36.4; O2SAT 97
--- NOTE | 2024-10-09 11:43 | PC.NURSE ---
Discharge orders placed. MD Morton called, who was covering for Vinay COFFEY, instructions for nitroglycerin placed, but medication order not placed. did not give this RN an clear answer if medication should be ordered. under cutting machine operator talked to MD Nguyen, MD Nguyen stated patient is okay to go with discharge instructions as is.
--- NOTE | 2024-10-09 13:20 | ESDS_ITS ---
<Statement entered by Colt Mclean MD - 10/09/24 15:28> Patient was examined with the team including attending physician. Note reviewed, I agree with the discharge plan as documented. - Colt Mclean MD PGY2 Disclaimer: The document may contain phonetic/typographic errors due to voice recognition software. These errors are purely due to imperfections in the software program and should not be misconstrued in any way to compromise the substance of the patient's medical care during this visit. <Statement entered by Sissy Nguyen DO - 10/09/24 14:51> I, Sissy Nguyen DO, attest that I was physically present for the paredes portions of the service and evaluated the patient with the resident and I reviewed and dis cussed the case with the resident and agree with the resident's findings and plans of care as documented above Planned Discharge Date 10/09/24 DS: Providers Provider Date of admission: 10/07/24 18:08 Primary care physician: Physician No Primary/Family Admitting Provider: Kiko White DO Attending Provider on Admission: Kiko White DO Consults: 10/07/24 17:18 Consult to Cardiology Stat Comment: Consulting Provider: Lilli Jackson Attending Provider on DC: Arnie Lyons MD Discharging Provider: Arnie Lyons MD DS: Diagnosis Problem List Completed Was Problem List Reviewed/Reconciled?: Yes Hospital Course Hospital Course Hospital course: 54-year-old male with past medical history of hypertension presented to the ED on 10/07 with episode of chest pain that started later that day associated with palpitations, anxiety and diaphoresis with radiation to the left arm. In the ED, patient was hypertensive 183/97, tachycardic 124, respiratory rate 18, afebrile. Pertinent findings included elevated lactic acid of 2.5, initial troponins negative but repeat showed 0.048. Initial EKG was negative for any concerning ST findings but there were some ST abnormalities noted. Patient was admitted and started on loading dose of aspirin, labetalol, metoprolol and nitroglycerin patch. Urinalysis did not show any signs of infection and chest x-ray showed no active disease. Patient was admitted and cardiology was consulted for possible NSTEMI type I. Cardiology recommended echocardiogram along with management of hypertension with left heart catheterization scheduled 10/08. Patient largely asymptomatic during hospitalization stay did not report any chest pain or any other concerning cardiac symptoms. Left heart catheterization completed on 10/08 showed no significant coronary lesions and no interventions were taken place. Patient will be discharged with the following strict instructions. Please take aspirin 81 mg by mouth daily along with atorvastatin 40 mg by mouth daily for stable angina Take sublingual nitroglycerin 0.4 mg every 5 minutes for up to three doses by mouth for chest pain; if pain does not subside come to the ED immediately. Continue all other home medications as prescribed Follow-up with paint line operator Dr. Jackson within 1 week after discharge Follow-up with your PCP within 1-2 weeks after discharge If your symptoms worsen or if you develop new chest pain, shortness of breath, palpitations, dizziness or lower leg swelling - please come back to the ED immediately. Hospital Diagnosis: #Stable angina #Elevated troponin, resolved #Hypertensive emergency #Mild CAD #Hypertension Arnie Lyons, PGY-1 Status at Discharge Overall status at discharge: patient is progressing back to baseline Time Spent with Patient Time attestation: Total time spent providing and/or coordinating discharge services: 45 minutes Time spent: Greater than 30 minutes Exam Vital Signs Temp Pulse Resp BP Pulse Ox O2 Del Method O2 Flow Rate 97.5 F 66 19 118/83 97 Room Air 3 10/09/24 11:40 10/09/24 11:40 10/09/24 11:40 10/09/24 11:40 10/09/24 11:40 10/09/24 11:40 10/07/24 19:57 Narrative Exam Physical Exam: GENERAL: Awake, answering questions appropriately in Portuguese, appears stated age HEENT: NC/AT. Moist mucosa. PERRLA/EOMI. CARDIO: Heart RRR, no obvious murmurs, no JVD. PULM: No coughing or visible SOB. Lungs CTA B/L. GI: Abdomen soft, NT/ND, +BS. SKIN/MSK/EXT: No wounds/discoloration/rashes/edema/amputations noted. +Pedal pulses present B/L. NEURO: Oriented x3, Moves extremities x4, no focal neurologic deficits noted Discharge Plan Plan Patient Disposition: HOME (Self Care) Patient condition on transfer: Stable Care Plan Goals: Please take aspirin 81 mg by mouth daily along with atorvastatin 40 mg by mouth daily for stable angina Take sublingual nitroglycerin 0.4 mg every 5 minutes for up to three doses by mouth for chest pain; if pain does not subside come to the ED immediately. Continue all other home medications as prescribed Follow-up with paint line operator Dr. Jackson within 1 week after discharge Follow-up with your PCP within 1-2 weeks after discharge If your symptoms worsen or if you develop new chest pain, shortness of breath, palpitations, dizziness or lower leg swelling - please come back to the ED immediately. Prescriptions/Referrals Prescriptions/Med Rec: New aspirin [Ecotrin Low Strength] 81 mg Tablet,Delayed Release (Dr/Ec) 81 mg PO QDAY 30 Days Qty: 30 0RF atorvastatin 40 mg tablet 40 mg PO QDAY 30 Days Qty: 30 0RF nitroglycerin 0.4 mg tablet, sublingual 0.4 mg buccal [id number] PRN (Reason: chest pain) 30 Days Qty: 20 0RF Continued lisinopril 20 mg tablet 20 mg PO DAILY famotidine 40 mg tablet 40 mg PO DAILY PRN (Reason: acid reflux) omeprazole 40 mg capsule,delayed release(DR/EC) 40 mg PO DAILY PRN (Reason: acid reflux) Discontinued aspirin 81 mg tablet,chewable 81 mg PO DAILY Referrals: No Primary/Family,Physician [Primary Care Provider] - Lilli Jackson MD [Physician] - Patient/Caregiver Discharge Instructions Discharge Activity: resume usual activities Education Materials: Nitroglycerin Fast Acting Dc, ED Angina, Stable Print Language: East Timorese Stand Alone Forms: Kym Award Info., Patient Portal Info Letter Discharge Order Discharge Orders: Discharge (Routine); Ordered 10/09/24 Ordered By: Colt Mclean Quality Discharge Quality Measures VTE prophylaxis
== END 2024-10-09 11:41 | disposition home or self-care (01) | DRG 281 ==
LOC: SERX 16:41 → SERHOLD 18:21 → S2NX 10-08 04:15
PROVIDERS: Internal Medicine; Nurse Practitioner Family; Student in an Organized Health Care Education/Training Program; Admitting Provider Student in an Organized Health Care Education/Training Program; Emergency Provider Family Medicine; Visit Provider Student in an Organized Health Care Education/Training Program
PROC: 4A023N7 Measurement of Cardiac Sampling and Pressure, Left Heart, Percutaneous Approach (ICD-10-PCS; principal; 2024-10-08 13:00)
DX: I21.4 Non-ST elevation (NSTEMI) myocardial infarction (principal); E87.1 Hypo-osmolality and hyponatremia; I16.1 Hypertensive emergency; E87.20 Acidosis, unspecified; E87.6 Hypokalemia; F41.9 Anxiety disorder, unspecified; I10 Essential (primary) hypertension; E83.42 Hypomagnesemia; E83.51 Hypocalcemia; I25.10 Atherosclerotic heart disease of native coronary artery without angina pectoris; L29.9 Pruritus, unspecified; Z79.82 Long term (current) use of aspirin; Z79.899 Other long term (current) drug therapy; Z87.891 Personal history of nicotine dependence
CPT/HCPCS: 36415; 71046; 80053; 80061; 80307; 81001; 83605; 83735; 83880; 84100; 84443; 84484; 85025; 85610; 85730; 93005; 93306; 96361; 96365; 96366; 96368; 96375; 96376; 99285; A4216; J0153; J0171; J0282; J0461; J0583; J1643; J1644; J2250; J2310; J2371; J2405; J3010; J3475; J3480; J3490; J7040; A9270